=== PATIENT | male | born 1950 | race Caucasian/White ===

== ENCOUNTER 2017-12-25 07:22 | Emergency (ER) | payer OTHER ==
[2017-12-25 07:44] LABS: BASOPHIL (%) 0.6 % (0-1); BASOPHIL COUNT 0.1 K/uL (0-0.1); EOSINOPHIL (%) 2.2 % (0-5); EOSINOPHIL COUNT 0.2 K/uL (0-0.3); HEMOGLOBIN 14.7 G/DL (12.5-16.6); IMMATURE GRANULOCYTE (%) 1.7 % (0.0-0.7); LYMPHOCYTE (%) 18.3 % (15-42); LYMPHOCYTE COUNT 1.7 K/uL (1.0-2.8); MCH 30.5 PG (29.0-34.0); MCHC 33.4 G/DL (30.0-36.0); MCV 91.3 FL (86-99); NEUTROPHIL (%) 66.2 % (45-76); PLATELET COUNT 192 K/uL (156-360); RBC DIS.WIDTH-CV 13.9 % (11.8-14.6); RBC DIS.WIDTH-SD 46.6 % (39-53); RED BLOOD COUNT 4.82 M/uL (4.00-5.50)
[2017-12-25 07:54] LABS: AMYLASE 127 IU/L (1-118); CHLORIDE 103 mEq/L (99-109); POTASSIUM 3.7 mEq/L (3.7-5.4); SODIUM 142 mEq/L (136-147)
[2017-12-25 07:56] LABS: GLUCOSE 120 mg/dL (70-99)
[2017-12-25 07:59] LABS: SERUM ETHYL ALCOHOL < 10 mg/dL
[2017-12-25 08:00] LABS: CREATININE 1.2 mg/dL (0.6-1.3)
[2017-12-25 08:01] LABS: UREA NITROGEN (BUN) 19 mg/dL (9-23)
[2017-12-25 08:02] LABS: GFR ESTIMATE (CALCULATED) > 59 mL/min/ (58.99-99999)
[2017-12-25 08:03] LABS: LIPASE 50 U/L (1.0-51.0)
[2017-12-25] MEDS ORDERED: COREG6.25 M1 PO ×2 (12:22→14:05)
[2017-12-25] MEDS ORDERED: COMBIVENT RESPIM4 GM IH (12:23)
[2017-12-25] MEDS ORDERED: SYMBICORT60 INHALAT IH (12:24)
[2017-12-25] MEDS ORDERED: KLOR-CON M2020 MEQ PO (12:26)
[2017-12-25] MEDS ORDERED: ASPIRIN EC325 MG PO (12:30)
[2017-12-25] MEDS ORDERED: LASIX20 MG PO ×2 (12:31→14:05)
[2017-12-25] MEDS ORDERED: K-DUR20 MEQ PO (14:05)
[2017-12-25] MEDS ORDERED: PROVENTIL HFA6.7 GM IH (14:15)
== END 2017-12-25 15:03 | disposition home or self-care (01) ==
LOC: TRA 07:22
PROVIDERS: Emergency Medicine Emergency Medical Services
DX: S22.32XA Fracture of one rib, left side, initial encounter for closed fracture (principal); J44.1 Chronic obstructive pulmonary disease with (acute) exacerbation; S50.02XA Contusion of left elbow, initial encounter; S30.1XXA Contusion of abdominal wall, initial encounter; V44.5XXA Car driver injured in collision with heavy transport vehicle or bus in traffic accident, initial encounter; Y92.410 Unspecified street and highway as the place of occurrence of the external cause; E27.8 Other specified disorders of adrenal gland; I71.2 Thoracic aortic aneurysm, without rupture; I10 Essential (primary) hypertension; E11.9 Type 2 diabetes mellitus without complications; Z87.891 Personal history of nicotine dependence; Z85.46 Personal history of malignant neoplasm of prostate; Z92.3 Personal history of irradiation; Z88.0 Allergy status to penicillin
CPT/HCPCS: 71045; 71260; 74177; 80048; 81003; 82150; 83690; 85025; 86850; 86900; 86901; 94640; 94644; 99281; 99285; G0480; J2930; J3475